=== PATIENT | female | born 1990 | race Two or more races ===

== ENCOUNTER 2020-06-04 09:39 | Outpatient (CLI) | payer OTHER | END 2020-06-04 09:50 | disposition home or self-care (01) | LOC: RX STUDY 09:39 | PROVIDERS: ATTEND Obstetrics & Gynecology Reproductive Endocrinology | DX: N80.2 Endometriosis of fallopian tube (principal); N94.4 Primary dysmenorrhea ==

== ENCOUNTER 2023-03-22 10:30 | Outpatient (CLI) | payer OTHER | END 2023-03-22 10:39 | disposition home or self-care (01) | LOC: RX STUDY 10:30 | DX: N80.9 Endometriosis, unspecified (principal) ==